=== PATIENT | male | born 1960 | race Caucasian/White ===

== ENCOUNTER 2017-10-20 15:07 | Observation (INO) ==
[2017-10-20 16:04] LABS: Basophils % 0.5 %; Eosinophils # 0.1 K/mcL (0.0-0.6); Eosinophils % 2.1 %; Hematocrit 41.6 % (37.5-50.1); Hemoglobin 14.5 g/dL (12.9-16.9); Immature Granulocytes % 0.2 % (0-4); Lymphocytes # 1.6 K/mcL (0.6-4.6); Mean Corpuscular HGB Conc 34.9 g/dL (31.6-35.5); Mean Corpuscular Hemoglobin 30.1 pg (28.0-33.3); Mean Corpuscular Volume 86.5 fL (83.0-100.0); Mean Platelet Volume 10.6 fL (9.4-12.4); Monocytes # 0.6 K/mcL (0.0-1.3); Monocytes % 10.5 %; Neutrophils # 3.4 K/mcL (1.6-8.9); Platelet Count 206 K/mcL (140-400); Red Blood Count 4.81 M/mcL (4.19-5.50); Red Cell Distribution Width 13.4 % (11.5-14.5); Segmented Neutrophils % 58.7 %
[2017-10-20 16:11] LABS: INR 1.1; Prothrombin Time 11.3 Seconds (9.4-12.1)
--- NOTE | 2017-10-20 16:12 | Emergency Department Note ---
Disposition Clinical Impression: Dizziness, Tremulousness Chest pain Qualifiers: Chest pain type: unspecified Qualified Code(s): R07.9 - Chest pain, unspecified Hypertension Qualifiers: Hypertension type: essential hypertension Qualified Code(s): I10 - Essential ( primary) hypertension Disposition: Admitted As Inpatient Condition: Good Time of Disposition: 17:57 Chest Pain HPI - General Chief Complaint: ED Chest Pain Stated Complaint: CP/dizziness Time Seen by Provider: 10/20/17 15:32 Source: patient, family Limitations: no limitations Vital Signs Reviewed: Yes Nursing Notes Reviewed: Yes - History of Present Illness HPI Narrative: This is a 57 year-old male with history of HTN, HLD, seizure disorder, depression, and anxiety. He presents with burning, nonradiating substernal and left-sided chest pain for the past 2 days, fully resolved at the time of evaluation. He also reports headache, dizziness (lightheadedness, not true vertigo), tremulousness, fatigue, and poor appetite, for about 3 months. He was noted to have elevated blood pressure during a routine blood draw earlier this afternoon, so he was sent to the ED for evaluation. He denies any associated fever, cough, weakness, leg pain or swelling. Pt complaint: chest pain Onset (ago): day(s) (2) Duration: now resolved Onset: other (during light activity) Pain Location: substernal, left chest Severity: moderate, now resolved Severity scale (1-10): 5 Quality: other (burning) Pain Radiation: none Improves with: nothing Worsens with: nothing Associated symptoms: Reports: diaphoresis. Denies: nausea, vomiting, dyspnea, syncope, palpitations, fever, cough, leg swelling - Related Data Home Medications Medication Instructions Recorded Confirmed Atorvastatin Calcium [Lipitor] 20 mg PO QPM 10/20/17 10/20/17 Divalproex Sodium [Depakote] 750 mg PO QID 10/20/17 10/20/17 Losartan Potassium [Cozaar] 50 mg PO DAILY 10/20/17 10/20/17 Nabumetone 750 mg PO DAILY PRN 10/20/17 10/20/17 Omeprazole [PriLOSEC] 20 mg PO DAILY 10/20/17 10/20/17 Ondansetron HCl [Zofran] 4 mg PO Q8HR PRN 10/20/17 10/20/17 Phenytoin ER [Dilantin ER] 200 mg PO BID 10/20/17 10/20/17 Allergies Allergy/AdvReac Type Severity Reaction Status Date / Time No Known Allergies Allergy Verified 10/20/17 15:10 All systems ED: reviewed and negative except as stated. Constitutional: Denies: fever Cardiovascular: Reports: as per HPI, chest pain (resolved). Denies: palpitations, edema, syncope Respiratory: Denies: cough, dyspnea Gastrointestinal: Denies: abdominal pain, nausea, vomiting, diarrhea, constipation, hematemesis, melena, hematochezia Neurological: Reports: headache. Denies: weakness, numbness Endocrine: Reports: fatigue Chest Pain PMH - Past Medical History Medical history: Reports: GERD, hyperlipidemia, hypertension, migraine, seizures Psychiatric history: Reports: anxiety, depression - Social History Smoking Status: Former smoker Alcohol use: Reports: rarely Drug use: Reports: none Physical Exam - General Limitations: no limitations General appearance: alert - Head Head exam: atraumatic, normocephalic - Eye Eye exam: Present: normal appearance, PERRL, EOMI - ENT ENT exam: normal exam - Neck Neck exam: Present: normal inspection. Absent: meningismus - Respiratory Respiratory exam: Present: normal lung sounds bilaterally. Absent: wheezes - Cardiovascular Cardiovascular exam: Present: regular rate, normal rhythm, normal heart sounds - Abdominal Exam Abdominal exam: Present: soft, Non-Tender. Absent: distention, guarding, rebound, rigidity - Extremities Exam Extremities exam: Present: normal inspection. Absent: calf tenderness - Neurological Exam Neurological exam: Present: alert, oriented X3, CN II-XII intact. Absent: motor sensory deficit - Psychiatric Psychiatric exam: Present: normal affect, normal mood - Skin Skin exam: Present: warm, dry, intact Course - Reevaluation(s) Reevaluation #1: Patient complained of RODRIGUEZ earlier, which improved with treatment of BP. He is CP- free. Still complains of tremulousness. Dilantin and Depakote levels pending. After discussing options with patient, he would like to come in for the chest pain and other symptoms. Time: 17:55 - Consultations Consultation #1: Paged hospitalist. Time: 17:57 Consultation #2: Reviewed case with Dr. Lund. Patient accepted for admit. Time: 18:16 Vital Signs Temperature 97.9 F 10/20/17 15:10 Pulse Rate 99 10/20/17 15:10 Respiratory Rate 18 10/20/17 15:10 Blood Pressure 176/99 10/20/17 15:10 O2 Sat by Pulse Oximetry 98 10/20/17 15:10 Temperature 97.2 F L 10/20/17 23:27 Pulse Rate 85 10/20/17 23:27 Respiratory Rate 15 10/20/17 23:27 Blood Pressure 136/84 10/20/17 23:27 O2 Sat by Pulse Oximetry 97 10/20/17 23:27 Oxygen Delivery Oxygen Delivery Room Air Chest Pain - Lab Data Lab results reviewed: Yes I reviewed the patient's lab results. Result diagrams: 10/21/17 00:10 10/21/17 00:10 Lab Results 10/20/17 10/20/17 10/20/17 Range/Units 15:50 15:50 15:50 WBC (4.3-11.1) K/mcL RBC (4.19-5.50) M/mcL Hgb (12.9-16.9) g/dL Hct (37.5-50.1) % MCV (83.0-100.0) fL MCH (28.0-33.3) pg MCHC (31.6-35.5) g/dL RDW (11.5-14.5) % Plt Count (140-400) K/mcL MPV (9.4-12.4) fL Immature Gran % (0-4) % Seg Neutrophils % % Lymphocytes % % Monocytes % % Eosinophils % % Basophils % % Neutrophils # (1.6-8.9) K/mcL Lymphocytes # (0.6-4.6) K/mcL Monocytes # (0.0-1.3) K/mcL Eosinophils # (0.0-0.6) K/mcL Basophils # (0.0-0.2) K/mcL PT 11.3 (9.4-12.1) Seconds INR 1.1 APTT 26.6 (26.0-36.0) Seconds Sodium (136-145) mEq/L Potassium (3.5-5.1) mEq/L Chloride (98-107) mEq/L Carbon Dioxide (23-29) mEq/L BUN (6-20) mg/dL Creatinine (0.70-1.30) mg/dL Est GFR ( Amer) (> 60) Est GFR (Non-Af Amer) (> 60) BUN/Creatinine Ratio (6-26) Glucose (70-105) mg/dL Calculated Osmolality (280-300) Calcium (8.6-10.3) mg/dL Total Bilirubin 0.4 (0.3-1.0) mg/dL Direct Bilirubin 0.1 (0.0-0.2) mg/dL Indirect Bilirubin 0.3 (0.0-1.2) mg/dL AST 17 (13-39) Units/L ALT 18 (7-52) Units/L Alkaline Phosphatase 61 (34-104) Units/L Troponin I (< 0.04) ng/mL B-Natriuretic Peptide 11 (Less than 100) pg/mL Serum Total Protein 7.5 (6.4-8.9) g/dL Albumin 4.5 (3.5-5.7) g/dL Globulin 3.0 (2.4-3.5) g/dL Albumin/Globulin Ratio 1.5 (1.1-2.2) Phenytoin (10.0-20.0) mcg/mL Valproic Acid (50-100) mcg/mL 10/20/17 10/20/17 Range/Units 15:50 15:50 WBC 5.7 (4.3-11.1) K/mcL RBC 4.81 (4.19-5.50) M/mcL Hgb 14.5 (12.9-16.9) g/dL Hct 41.6 (37.5-50.1) % MCV 86.5 (83.0-100.0) fL MCH 30.1 (28.0-33.3) pg MCHC 34.9 (31.6-35.5) g/dL RDW 13.4 (11.5-14.5) % Plt Count 206 (140-400) K/mcL MPV 10.6 (9.4-12.4) fL Immature Gran % 0.2 (0-4) % Seg Neutrophils % 58.7 % Lymphocytes % 28.0 % Monocytes % 10.5 % Eosinophils % 2.1 % Basophils % 0.5 % Neutrophils # 3.4 (1.6-8.9) K/mcL Lymphocytes # 1.6 (0.6-4.6) K/mcL Monocytes # 0.6 (0.0-1.3) K/mcL Eosinophils # 0.1 (0.0-0.6) K/mcL Basophils # 0.0 (0.0-0.2) K/mcL PT (9.4-12.1) Seconds INR APTT (26.0-36.0) Seconds Sodium 140 (136-145) mEq/L Potassium 3.7 (3.5-5.1) mEq/L Chloride 106 (98-107) mEq/L Carbon Dioxide 26 (23-29) mEq/L BUN 9 (6-20) mg/dL Creatinine 0.73 (0.70-1.30) mg/dL Est GFR ( Amer) > 60 (> 60) Est GFR (Non-Af Amer) > 60 (> 60) BUN/Creatinine Ratio 12 (6-26) Glucose 111 H (70-105) mg/dL Calculated Osmolality 289 (280-300) Calcium 9.6 (8.6-10.3) mg/dL Total Bilirubin (0.3-1.0) mg/dL Direct Bilirubin (0.0-0.2) mg/dL Indirect Bilirubin (0.0-1.2) mg/dL AST (13-39) Units/L ALT (7-52) Units/L Alkaline Phosphatase (34-104) Units/L Troponin I < 0.03 (< 0.04) ng/mL B-Natriuretic Peptide (Less than 100) pg/mL Serum Total Protein (6.4-8.9) g/dL Albumin (3.5-5.7) g/dL Globulin (2.4-3.5) g/dL Albumin/Globulin Ratio (1.1-2.2) Phenytoin 10.4 (10.0-20.0) mcg/mL Valproic Acid 29 L (50-100) mcg/mL - Radiology Data Radiology results reviewed: Yes I reviewed the patient's radiology results. XR/XR chest 1V portable IMPRESSION: No acute cardiopulmonary process. - EKG Data EKG attestation: Yes I reviewed and interpreted this EKG. EKG shows normal: sinus rhythm Rate: normal T wave inversions noted in: III Interpretation: nonspecific ST-T wave changes
[2017-10-20 16:14] LABS: Activated Partial Thrombo Time 26.6 Seconds (26.0-36.0)
[2017-10-20 16:25] LABS: Albumin 4.5 g/dL (3.5-5.7); Albumin/Globulin Ratio 1.5 (1.1-2.2); Bilirubin,Direct 0.1 mg/dL (0.0-0.2); Bilirubin,Indirect 0.3 mg/dL (0.0-1.2); Bilirubin,Total 0.4 mg/dL (0.3-1.0); Total Protein 7.5 g/dL (6.4-8.9)
[2017-10-20 16:28] LABS: Troponin I < 0.03 ng/mL (< 0.04)
[2017-10-20 16:29] LABS: BUN/Creatinine Ratio 12 (6-26); Blood Urea Nitrogen 9 mg/dL (6-20); Calcium 9.6 mg/dL (8.6-10.3); Carbon Dioxide 26 mEq/L (23-29); Chloride 106 mEq/L (98-107); Glucose 111 mg/dL (70-105); Osmolality,Calculated 289 (280-300); Potassium 3.7 mEq/L (3.5-5.1); Sodium 140 mEq/L (136-145); eGFR For African Americans > 60 (> 60); eGFR For Non-African Americans > 60 (> 60)
[2017-10-20] MEDS ORDERED: *HR* Labetalol 100 MG/20 ML MDV IVP ONE (17:20)
[2017-10-20 18:13] LABS: Phenytoin (Dilantin) 10.4 mcg/mL (10.0-20.0); Valproate 29 mcg/mL (50-100)
[2017-10-20] MEDS ORDERED: Aspirin 325 MG TABLET PO ONE (18:15)
[2017-10-20] MEDS ORDERED: Ondansetron ODT 4 MG TAB.RAPDIS PO PRN (18:57)
[2017-10-20] MEDS ORDERED: Naloxone 0.4 MG/ML INJ IVP PRN (19:34)
--- NOTE | 2017-10-20 19:46 | Internal Med History&Physical ---
Date of Encounter: 10/20/17 Time of Encounter: 19:43 Internal Medicine - H&P: HPI Chief complaint: Chest pain Admitted From: Home Plans for Post Hospital Care: Home History of present illness: Mr. Monroe is a 57 year old male who presents with intermittent chest pain since yesterday along with dizziness, hand tremors, and HTN. He has a hx of htn , hld, seizure and traumatic brain injury in 1989. The patient indicated that he had a tick bite in July and he noticed the issues with his bp since then. He was not sure if they were related. The patient indicated that the chest pain was unrelieved today and he decided to come in. He did question if it could have been indigestion. Bp was elevated in the ED and he was given a ASA for the pain and a labetolol with good relief. He is currently pain free. Trop was negative. Ekg showed SR with a ventricular rate of 94 bpm. Past Med Surg Social Fam HX - Past Medical History Medical history: GERD, hyperlipidemia, hypertension, migraine, seizures Psychiatric history: anxiety, depression - Social History Smoking Status: Former smoker Smokeless Tobacco Status: No Alcohol use: rarely Drug use: none Internal Medicine - H&P: Meds Atorvastatin Calcium [Lipitor] 20 mg PO QPM 10/20/17 [History] Divalproex Sodium [Depakote] 750 mg PO QID 10/20/17 [History] Losartan Potassium [Cozaar] 50 mg PO DAILY 10/20/17 [History] Nabumetone 750 mg PO DAILY PRN 10/20/17 [History] Omeprazole [PriLOSEC] 20 mg PO DAILY 10/20/17 [History] Ondansetron HCl [Zofran] 4 mg PO Q8HR PRN 10/20/17 [History] Phenytoin ER [Dilantin ER] 200 mg PO BID 10/20/17 [History] 3 Allergy/AdvReac Type Severity Reaction Status Date / Time No Known Allergies Allergy Verified 10/20/17 15:10 All Systems PM: A 10-system review of systems was performed and is negative for pertinent findings except as documented above in the HPI. - Constitutional Constitutional: no chills, no fever(s), no night sweats - EENT Eyes: no change in vision, no discharge, no pain, no photophobia Ears: no ear discharge, no ear pain, no tinnitus Nose, mouth and throat: no dysphagia, no nasal discharge, no neck pain, no sore throat - Cardiovascular Cardiovascular ROS IM: chest pain, diaphoresis, lightheadedness, no dyspnea, no palpitations, no syncope - Respiratory Respiratory: no cough, no dyspnea, no wheezing, no excessive phlegm production - Gastrointestinal Gastrointestinal: no abdominal pain, no diarrhea, no hematemesis, no hematochezia, no melena, no nausea, no vomiting - Musculoskeletal Musculoskeletal ROS IM: no numbness, no tingling - Integumentary Integumentary IM: no rash, no unusual bruising - Neurological Neurological ROS: dizziness, no confusion, no convulsions, no focal weakness, no numbness, no tingling, no tremor(s) - Hematologic/Lymphatic Hematologic/Lymphatic: no easy bruising - Constitutional Vitals: Temp Pulse Resp BP Pulse Ox 97.9 F 82 16 154/98 98 10/20/17 15:10 10/20/17 18:51 10/20/17 18:51 10/20/17 18:51 10/20/17 18:51 General appearance: Present: A&O X 3 - Head Head exam: Present: atraumatic, normocephalic - Eye Eye exam: Present: PERRL, conjuntiva pink, sclera anicteric Pupils: Present: PERRL - Neck Neck exam general surgery: Present: supple, trachea midline. Absent: lymphadenopathy - Respiratory Respiratory exam: Present: CTAB. Absent: accessory muscle use, rales, rhonchi, wheezes - Cardiovascular Cardiovascular exam: Present: RRR, +S1, +S2. Absent: diastolic murmur, gallop, rubs, systolic murmur - GI/Abdominal GI/Abdominal exam: Present: normal bowel sounds, soft, no peritoneal signs. Absent: distended, tenderness - Extremities Exam Extremities exam: Present: warm, radial pulses palpable and symmetrical. Absent : calf tenderness, cyanotic, pedal edema - Neurological Exam Neurological exam: Present: CN II-XII intact, oriented X3, no focal deficits. Absent: pronater drift, facial droop, speech deficit - Skin Skin exam: Present: dry, intact Internal Med - H&P Results - Labs CBC & Chem 7: 10/20/17 15:50 10/20/17 15:50 - Assessment and plan (1) Chest pain Current Visit: Yes Status: Acute Assessment and plan: Serial cardiac troponins. Cardiac monitoring. Nitro prn. Plan for stress test in am. Will also get echo Qualifiers: Chest pain type: unspecified Qualified Code(s): R07.9 - Chest pain, unspecified (2) Hypertension Current Visit: Yes Status: Acute Assessment and plan: Restart home medication, Iv hydralazine prn. Cardiac monitoring Qualifiers: Hypertension type: essential hypertension Qualified Code(s): I10 - Essential (primary) hypertension (3) Dizziness Current Visit: Yes Status: Acute Assessment and plan: Schedule carotid US.and echocardiogram. Continuos cardiac monitoring. (4) Tremulousness Current Visit: Yes Status: Acute Assessment and plan: Evaluate medications and monitor vital signs. Carotid US, stress test and echocardiogram scheduled - Time Spent With Patient Total time spent is greater than 50% in coordination of care (as documented) at patient's floor/unit and/or counseling patient: 25 - 35 minutes
--- NOTE | 2017-10-20 19:59 | Event Note ---
Date of Encounter: 10/20/17 Time of Encounter: 19:53 Patient was seen and examined. Agree with the H&P as written by the [employer]PER[employer] HELPER. Briefly, 57 year-old male with history of HTN, HLD, seizure disorder, depression, and anxiety here with 2 days complains of left sided CP that is nonrediating. Was at urgent care and noted to have BP in the 200s systolically. Sent here. W/u including EKG and cardiac enzymes unremarkable. BP 176/99 on arrival and went up to 202/111 in the ED. Given labetalol IV 10 mg and BP came down to 154/98. The patient reports dizziness and feeling unsteady since July. He had a tick bite at that time and was tested for lymes and it was negative. Also reports headaches. BP at home is in the 180s at times. A/Ox3 NAD RRR, S1, S2, no m/r/g CTAB Soft, NT, ND, No edema Admit to tele Restart home anti-hypertensives. IV hydralazine PRN. I think some of his symptoms are from elevated BP including CP, headache, and dizziness. May need home anti-hypertensives adjusted before d/c Trend cardiac enzymes Stress test in am check lipid panel and A1c Check echo and carotids SL nitro
[2017-10-20] MEDS ORDERED: Nitroglycerin 0.4 MG TAB.SUBL SL PRN (20:09)
[2017-10-20] MEDS: Divalproex (12 HR) 250 MG TABLET PO SCH (20:32)
[2017-10-21 00:58] LABS: Basophils % 0.7 %; Eosinophils # 0.2 K/mcL (0.0-0.6); Eosinophils % 3.3 %; Hematocrit 40.9 % (37.5-50.1); Hemoglobin 13.8 g/dL (12.9-16.9); Immature Granulocytes % 0.2 % (0-4); Lymphocytes # 2.2 K/mcL (0.6-4.6); Lymphocytes % 36.9 %; Mean Corpuscular HGB Conc 33.7 g/dL (31.6-35.5); Mean Corpuscular Hemoglobin 29.2 pg (28.0-33.3); Mean Corpuscular Volume 86.7 fL (83.0-100.0); Mean Platelet Volume 11.1 fL (9.4-12.4); Monocytes # 0.6 K/mcL (0.0-1.3); Monocytes % 9.8 %; Platelet Count 199 K/mcL (140-400); Red Blood Count 4.72 M/mcL (4.19-5.50); Red Cell Distribution Width 13.8 % (11.5-14.5); Segmented Neutrophils % 49.1 %
[2017-10-21 01:16] LABS: BUN/Creatinine Ratio 12 (6-26); Blood Urea Nitrogen 9 mg/dL (6-20); Carbon Dioxide 25 mEq/L (23-29); Chloride 107 mEq/L (98-107); Chol/HDL Ratio 3.5 (0-4.9); Cholesterol 184 mg/dL (< 200); Glucose 127 mg/dL (70-105); HDL Cholesterol 52 mg/dL (40-59); LDL Cholesterol,Calculated 113 mg/dL (0-99); Osmolality,Calculated 294 (280-300); Potassium 3.3 mEq/L (3.5-5.1); Sodium 142 mEq/L (136-145); Triglycerides 97 mg/dL (< 150); eGFR For African Americans > 60 (> 60); eGFR For Non-African Americans > 60 (> 60)
[2017-10-21] MEDS ORDERED: Regadenoson 0.4 MG/5 ML SYRINGE IVP ONE (06:07)
[2017-10-21] MEDS: Divalproex (12 HR) 250 MG TABLET PO SCH ×4 (09:14→20:58)
--- NOTE | 2017-10-21 11:32 | Internal Med Progress Note ---
Date of Encounter: 10/21/17 Time of Encounter: 11:26 - Assessment and plan (1) Hypertension Current Visit: Yes Status: Acute Assessment and plan: BP improving, continue current anti-HTN regimen, when necessary hydralazine, closely monitoring melenic status and cardiac status The patient will need to stay an additional night as his medications have recently been up titrated. Ensure patient does not have any complications from a titration of anti- HTN medications Qualifiers: Hypertension type: essential hypertension Qualified Code(s): I10 - Essential (primary) hypertension (2) Dizziness Current Visit: Yes Status: Acute Assessment and plan: Dizziness is intermittent, improved with improvement in blood pressure Awaiting results of carotid duplex Stress test unremarkable, likely not cardiac consult Review medications and adjust as needed (3) Chest pain Current Visit: Yes Status: Resolved Assessment and plan: Resolved, serial troponins negative, ECG without acute ischemia, stress test negative for ischemia. Waiting results of echocardiogram Continue cardiac medications Continue monitor Qualifiers: Chest pain type: unspecified Qualified Code(s): R07.9 - Chest pain, unspecified (4) Tremulousness Current Visit: Yes Status: Resolved - Time Spent With Patient Total time spent is greater than 50% in coordination of care (as documented) at patient's floor/unit and/or counseling patient: 25 - 35 minutes - Subjective Interval history: Seen and examined at bedside today. Presented with chest pain and dizziness. History of HLD, HTN. ACS rule out found to be negative. No longer complaining of chest pain. Was also found to have HTN which is thought to exacerbate chest pain. Hypertension has improved. No acute changes overnight. - Constitutional Vitals: Temp Pulse Resp BP Pulse Ox 98.1 F 85 16 158/82 98 10/21/17 11:14 10/21/17 11:14 10/21/17 11:14 10/21/17 11:14 10/21/17 11:14 General appearance: Present: A&O X 3 - Head Head exam: Present: atraumatic, normocephalic - Eye Eye exam: Present: PERRL, conjuntiva pink, sclera anicteric Pupils: Present: PERRL - Neck Neck exam general surgery: Present: supple, trachea midline. Absent: lymphadenopathy - Respiratory Respiratory exam: Present: CTAB. Absent: accessory muscle use, rales, rhonchi, wheezes - Cardiovascular Cardiovascular exam: Present: RRR, +S1, +S2. Absent: diastolic murmur, gallop, rubs, systolic murmur - GI/Abdominal GI/Abdominal exam: Present: normal bowel sounds, soft, no peritoneal signs. Absent: distended, tenderness - Extremities Exam Extremities exam: Present: warm, radial pulses palpable and symmetrical. Absent : calf tenderness, cyanotic, pedal edema - Neurological Exam Neurological exam: Present: CN II-XII intact, oriented X3, no focal deficits. Absent: pronater drift, facial droop, speech deficit - Skin Skin exam: Present: dry, intact Internal Medicine: Result - Labs CBC & Chem 7: 10/21/17 00:10 10/21/17 00:10 Labs: Short CBC 10/21/17 Range/Units 00:10 WBC 6.0 (4.3-11.1) K/mcL Hgb 13.8 (12.9-16.9) g/dL Hct 40.9 (37.5-50.1) % Plt Count 199 (140-400) K/mcL Neutrophils # 3.0 (1.6-8.9) K/mcL BMP 10/21/17 00:10 Sodium 142 Potassium 3.3 L Chloride 107 Carbon Dioxide 25 BUN 9 Creatinine 0.78 Glucose 127 H Calcium 9.0 Cardiac Enzymes 10/21/17 10/21/17 Range/Units 00:10 05:48 Troponin I < 0.03 < 0.03 (< 0.04) ng/mL - ABG Interpretation ABG results: PT/INR, D-dimer PT 11.3 Seconds (9.4-12.1) 10/20/17 15:50 - Impressions Impressions Chest X-Ray 10/20/17 15:16 IMPRESSION: No acute cardiopulmonary process. D/ / Omar Morris MD / Omar Morris MD Interpreting Provider: Omar Morris MD Consult Discharge Plan - Plan Referrals: Odilia Santos, MAGGIE [Primary Care Provider] -
[2017-10-22] MEDS: Divalproex (12 HR) 250 MG TABLET PO SCH (07:47)
[2017-10-22 07:52] LABS: BUN/Creatinine Ratio 14 (6-26); Blood Urea Nitrogen 10 mg/dL (6-20); Calcium 8.8 mg/dL (8.6-10.3); Carbon Dioxide 26 mEq/L (23-29); Chloride 109 mEq/L (98-107); Glucose 101 mg/dL (70-105); Osmolality,Calculated 291 (280-300); Potassium 3.5 mEq/L (3.5-5.1); Sodium 141 mEq/L (136-145); eGFR For African Americans > 60 (> 60); eGFR For Non-African Americans > 60 (> 60)
[2017-10-22 08:23] LABS: Basophils # 0.1 K/mcL (0.0-0.2); Basophils % 0.9 %; Eosinophils # 0.3 K/mcL (0.0-0.6); Eosinophils % 5.4 %; Hematocrit 39.2 % (37.5-50.1); Hemoglobin 12.9 g/dL (12.9-16.9); Immature Granulocytes % 0.2 % (0-4); Lymphocytes # 1.9 K/mcL (0.6-4.6); Lymphocytes % 35.4 %; Mean Corpuscular HGB Conc 32.9 g/dL (31.6-35.5); Mean Corpuscular Hemoglobin 28.9 pg (28.0-33.3); Mean Corpuscular Volume 87.9 fL (83.0-100.0); Monocytes # 0.6 K/mcL (0.0-1.3); Monocytes % 10.8 %; Neutrophils # 2.6 K/mcL (1.6-8.9); Platelet Count 191 K/mcL (140-400); Red Blood Count 4.46 M/mcL (4.19-5.50); Red Cell Distribution Width 14.1 % (11.5-14.5); Segmented Neutrophils % 47.3 %
--- NOTE | 2017-10-22 10:34 | Discharge Summary ---
- NOTES TO OUTPATIENT PROVIDER Notes to Outpatient Provider: Admitted for chest pain, ECG without acute ischemia, stress test negative for ischemia, serial troponins negative 3, echocardiogram unremarkable. Cp thought to because by hypertensive urgency, hesitancy improved with improvement in the pressure. Patient's ARB uptitrated to 50 mg by mouth daily. Has been advised to follow-up with PCP within one week for close monitoring/trembling of BP. Orders not resulted at time of discharge: Pending orders 10/20/17 19:40 NM january perf SPECT multi [NM] Routine 10/21/17 00:10 Hgb A1C AM 0400 Date of Encounter: 10/22/17 Time of Encounter: 10:31 - Discharge Diagnosis (1) Hypertension Priority: Primary Status: Acute Assessment and Plan: Patient admitted for chest pain in the setting of hypertensive urgency. Chest pain resolved with improvement in BP. Was kept an additional day due to up titration of ARB. Trending of blood pressure reveals titrate her BP control. BP continuing to improve. Patient has been instructed to continue increase and ARB, 50 mg by mouth daily. Follow-up with PCP in one week. Qualifiers: Hypertension type: essential hypertension Qualified Code(s): I10 - Essential (primary) hypertension (2) Dizziness Priority: Secondary Status: Acute Assessment and Plan: Resolved, improved with tighter control of BP Carotid duplex with nonstenotic plaque located bilaterally in ICA (3) Chest pain Priority: Secondary Status: Resolved Assessment and Plan: Resolved, serial troponins negative, ECG without acute ischemia, stress test negative for ischemia. Waiting results of echocardiogram Continue cardiac medications Continue monitor Qualifiers: Chest pain type: unspecified Qualified Code(s): R07.9 - Chest pain, unspecified (4) Tremulousness Priority: Secondary Status: Resolved Hospital course: Mr. Monroe is a 57 year old male See assessment and plan for hospital course Discharge discussed with: patient, family, nurse - Time Spent with Patient Total time spent providing and/or coordinating discharge services: Less than 30 minutes - Discharge Medications Prescriptions: Losartan Potassium [Cozaar] 50 mg PO DAILY 30 Days #30 tablet Home Medications: Atorvastatin Calcium [Lipitor] 20 mg PO QPM 10/20/17 [History] Divalproex Sodium [Depakote] 750 mg PO QID 10/20/17 [History] Nabumetone 750 mg PO DAILY PRN 10/20/17 [History] Omeprazole [PriLOSEC] 20 mg PO DAILY 10/20/17 [History] Ondansetron HCl [Zofran] 4 mg PO Q8HR PRN 10/20/17 [History] Phenytoin ER [Dilantin ER] 200 mg PO BID 10/20/17 [History] Losartan Potassium [Cozaar] 50 mg PO DAILY 30 Days #30 tablet 10/22/17 [Rx] Allergies/Adverse Reactions: 3 Allergy/AdvReac Type Severity Reaction Status Date / Time No Known Allergies Allergy Verified 10/20/17 15:10 Date of admission: 10/20/17 18:35 Primary care physician: Odilia Santos, Discharging clinician: Tyshawn Bautista Anticipated date of discharge: 10/22/17 - Constitutional Vitals: Temp Pulse Resp BP Pulse Ox 98.4 F 91 16 116/72 96 10/22/17 06:42 10/22/17 09:37 10/22/17 06:42 10/22/17 09:37 10/22/17 06:42 General appearance: Present: A&O X 3 - Head Head exam: Present: atraumatic, normocephalic - Eye Eye exam: Present: PERRL, conjuntiva pink, sclera anicteric Pupils: Present: PERRL - Neck Neck exam general surgery: Present: supple, trachea midline. Absent: lymphadenopathy - Respiratory Respiratory exam: Present: CTAB. Absent: accessory muscle use, rales, rhonchi, wheezes - Cardiovascular Cardiovascular exam: Present: RRR, +S1, +S2. Absent: diastolic murmur, gallop, rubs, systolic murmur - GI/Abdominal GI/Abdominal exam: Present: normal bowel sounds, soft, no peritoneal signs. Absent: distended, tenderness - Extremities Exam Extremities exam: Present: warm, radial pulses palpable and symmetrical. Absent : calf tenderness, cyanotic, pedal edema - Neurological Exam Neurological exam: Present: CN II-XII intact, oriented X3, no focal deficits. Absent: pronater drift, facial droop, speech deficit - Skin Skin exam: Present: dry, intact - Patient Status Disposition: Home, Self-Care Condition: Good Overall status at discharge: patient is back to baseline - Discharge Instructions Follow Up With: Odilia Santos, [employer] [Primary Care Provider] -
[2017-10-22 10:35] VITALS: BP 124/77
[2017-10-22 13:06] LABS: Estimated Average Glucose 117 mg/dl; Hemoglobin A1C 5.7 %
--- NOTE | 2017-10-23 06:34 | Electrocardiograph Report ---
[place] [employer] Test Date: 2017-10-20 Pat Name: Dayron Monroe Department: 102 Room: 3B37 Gender: M Machinist Bench: Risa : 1960 Requested By: Roldan Zamora Order Number: [id number] Reading MD: Sedrick Riggins Measurements Intervals [place] Rate: 94 P: 23 MI: 140 QRS: -1 QRSD: 97 T: 1 QT: 340 QTc: 392 Interpretive Statements SINUS RHYTHM INDETERMINATE AXIS ATYPICAL ECG Electronically Signed On 10-23-2017 6:33:26 EDT by Sedrick Riggins
== END 2017-10-22 11:40 | disposition home or self-care (01) ==
LOC: EMEROO 15:07 → 3BNU 15:07
PROVIDERS: ADMIT Internal Medicine; ATTEND Internal Medicine